=== PATIENT | female | born 1950 | race Caucasian/White ===

== ENCOUNTER 2017-02-01 17:42 | Emergency (ER) | payer MEDICARE, OTHER ==
[~2017-02-01] VITALS: Ht 157.5 cm; Wt 46.3 kg
[2017-02-01] MEDS ORDERED: SODIUM CHLORIDE 0.9% 1,000ML IVBOLUS ONE (19:00)
[2017-02-01] MEDS ORDERED: PLEASE ENTER ALLERGIES MC SCH ×2 (19:00)
[2017-02-01] MEDS ORDERED: SODIUM CHLORIDE FLUSH 10ML SYR IVF ONE (19:00)
[2017-02-01] MEDS ORDERED: LOSARTAN 50MG TABLET PO ONE (19:00)
[2017-02-01 19:09] LABS: HEMATOCRIT 45.8 % (34.6-47.8); HEMOGLOBIN 15.7 g/dL (11.7-16.4); WHITE BLOOD COUNT 10.7 x10^3/uL (3.4-10)
[2017-02-01 19:21] LABS: BLOOD UREA NITROGEN 8 mg/dL (7-18)
[2017-02-01] MEDS ORDERED: LABETALOL 5MG/ML, 20ML IVPush ONE (19:30)
[2017-02-01] MEDS ORDERED: LABETALOL 5MG/ML, 20ML ONE (19:43)
[2017-02-01] MEDS ORDERED: hydrALAzine 20 MG/ML, 1ML ONE (20:48)
[2017-02-01] MEDS ORDERED: hydrALAzine 20 MG/ML, 1ML IV ONE (21:00)
[2017-02-01 21:44] VITALS: BP 177/93
[2017-02-01] MEDS ORDERED: ACETAMINOPHEN 500 MG TABLET ONE (22:34)
[2017-02-01] MEDS ORDERED: ACETAMINOPHEN 500 MG TABLET PO ONE (23:00)
== END 2017-02-01 22:57 | disposition home or self-care (01) ==
LOC: ED 22:51
DX: I10 Essential (primary) hypertension (principal); Z86.73 Personal history of transient ischemic attack (TIA), and cerebral infarction without residual deficits; Z87.891 Personal history of nicotine dependence
CPT/HCPCS: 36415; 70450; 80048; 82040; 85025; 93005; 96361; 96374; 96375; 99285; J0360; J7030